=== PATIENT | male | born 1955 | race Native Hawaiian/Other Pacific Islander ===

== ENCOUNTER 2017-07-28 05:31 | Inpatient (IN) | payer OTHER ==
[2017-07-28] VITALS (34 sets, daily range): BP systolic 136–1127; BP diastolic 62–147; TEMP 97.6–98.7; Ht 180.3 cm; Wt 109.3 kg
[~2017-07-28] VITALS: Ht 180.3 cm; Wt 109.3 kg
[~2017-07-28 05:31] MED LIST: AMITRIPTYLIN50 MG PO; ASA LO-DOSE81 MG PO; CLOP75TA2 PO; ESCI10TA PO; FURO20TA67 PO; LOFIBRA200 MG PO; LOPRESSOR100 MG PO; LOSA50TA PO; METF500T PO; METO50TA27 PO; MONT10TA PO; NAPROXEN DR500 MG PO; NEXIUM40 M1 PO; NIASPAN1000 ER PO; NORCO 10/325***1 TAB PO; RANI150T78 PO; ZOCOR80 MG PO
[2017-07-28 05:54] LABS: PLATELET COUNT 188 K/uL (142-355)
[2017-07-28 06:04] LABS: POTASSIUM 4.8 mmol/L (3.6-5.2); SODIUM 130 mmol/L (136-145)
[2017-07-28 06:30] LABS: PARTIAL THROMBOPLASTIN TIME 28.4 SECONDS (24.5-33.6)
[2017-07-28] MEDS ORDERED: WARF5TAB6 PO (12:15)
[2017-07-28] MEDS ORDERED: COUMADIN6 MG PO (12:16)
[2017-07-28] MEDS ORDERED: INSU100P SC (12:17)
[2017-07-28] MEDS ORDERED: LANTUS SOLOSTAR SC (12:18)
[2017-07-29] VITALS (21 sets, daily range): BP systolic 115–167; BP diastolic 61–86; TEMP 97.3–97.9
[2017-07-29 05:40] LABS: PLATELET COUNT 145 K/uL (142-355)
[2017-07-29 06:46] LABS: SODIUM 135 mmol/L (136-145)
== END 2017-07-29 12:31 | disposition short-term general hospital (02) | DRG 311 ==
LOC: ED 05:31 → ICU 10:10
PROVIDERS: ADMIT Family Medicine
DX: I20.0 Unstable angina (principal); I25.2 Old myocardial infarction; I10 Essential (primary) hypertension; E11.9 Type 2 diabetes mellitus without complications; R07.89 Other chest pain
CPT/HCPCS: 80053; 82550; 82553; 82962; 84484; 85027; 85610; 85730; 93005; 94760; 96365; 96368; 96372; 96375; 96376; 99285; J1644; J1815; J2060; J2270; J2405; J2550; J3490

== ENCOUNTER 2017-08-25 00:09 | Inpatient (IN) | payer OTHER ==
[~2017-08-25] VITALS: Ht 180.3 cm; Wt 104.4 kg
[~2017-08-25 00:09] MED LIST changes: +COUMADIN6 MG PO; +INSU100P SC; +LANTUS SOLOSTAR SC; +WARF5TAB6 PO
[2017-08-25 00:29] VITALS: BP 136/67; TEMP 98.2
[2017-08-25 01:34] LABS: PLATELET COUNT 216 K/uL (142-355)
[2017-08-25 01:42] LABS: POTASSIUM 4.5 mmol/L (3.6-5.2)
[2017-08-25 07:30] VITALS: BP 147/73; TEMP 98.3
[2017-08-25 08:29] VITALS: BP 145/75; TEMP 98; Ht 180.3 cm; Wt 104.4 kg
[2017-08-25 11:37] LABS: POTASSIUM 4.1 mmol/L (3.6-5.2)
[2017-08-25 12:00] VITALS: BP 137/68; TEMP 98
[2017-08-25 16:30] VITALS: BP 145/79; TEMP 98.2
[2017-08-25 20:00] VITALS: BP 156/81; TEMP 99.2
[2017-08-26] VITALS: BP 168/92; TEMP 98.7
[2017-08-26 04:00] VITALS: BP 147/78; TEMP 99.4
[2017-08-26 04:49] LABS: PLATELET COUNT 168 K/uL (142-355)
[2017-08-26 05:39] LABS: POTASSIUM 4.5 mmol/L (3.6-5.2)
[2017-08-26 08:00] VITALS: BP 164/87; TEMP 98.9
[2017-08-26 12:00] VITALS: BP 167/83; TEMP 98.9
[2017-08-26 20:00] VITALS: BP 141/72; TEMP 98.4
[2017-08-27] VITALS: BP 155/82; TEMP 98.2
[2017-08-27 04:00] VITALS: BP 166/88; TEMP 98.6
[2017-08-27 05:27] LABS: PLATELET COUNT 200 K/uL (142-355)
[2017-08-27 05:34] LABS: POTASSIUM 4.2 mmol/L (3.6-5.2)
[2017-08-27 08:00] VITALS: BP 162/89; TEMP 98.3
== END 2017-08-27 15:15 | disposition home or self-care (01) | DRG 438 ==
LOC: ED 00:09 → MED/SURG 04:36
PROVIDERS: Family Medicine; ADMIT Specialist
DX: K85.80 Other acute pancreatitis without necrosis or infection (principal); I21.9 Acute myocardial infarction, unspecified; D72.828 Other elevated white blood cell count; E86.0 Dehydration; E11.65 Type 2 diabetes mellitus with hyperglycemia; Z79.4 Long term (current) use of insulin; I25.10 Atherosclerotic heart disease of native coronary artery without angina pectoris; I48.91 Unspecified atrial fibrillation; Z79.01 Long term (current) use of anticoagulants; I12.9 Hypertensive chronic kidney disease with stage 1 through stage 4 chronic kidney disease, or unspecified chronic kidney disease; E11.22 Type 2 diabetes mellitus with diabetic chronic kidney disease; N18.3 Chronic kidney disease, stage 3 (moderate)
CPT/HCPCS: 36415; 80053; 80307; 81000; 82150; 82948; 83690; 83735; 84100; 84484; 85027; 85610; 93005; 96365; 96366; 96367; 96372; 96374; 96375; 99284; G0479; J0744; J1885; J1940; J2175; J2270; J2550; J3490

== ENCOUNTER 2017-09-03 10:21 | Emergency (ER) | payer OTHER ==
[~2017-09-03] VITALS: Ht 180.3 cm; Wt 98.0 kg
[2017-09-03 10:25] VITALS: TEMP 98.4
[2017-09-03 11:43] LABS: PLATELET COUNT 351 K/uL (142-355)
[2017-09-03 11:48] LABS: POTASSIUM 4.4 mmol/L (3.6-5.2)
[2017-09-03 13:33] VITALS: BP 135/78
== END 2017-09-03 13:34 | disposition home or self-care (01) ==
LOC: ED 10:21
PROVIDERS: Specialist
DX: K85.80 Other acute pancreatitis without necrosis or infection (principal); I25.10 Atherosclerotic heart disease of native coronary artery without angina pectoris; R11.2 Nausea with vomiting, unspecified
CPT/HCPCS: 80053; 82150; 83690; 83735; 84100; 84484; 85027; 93005; 96360; 96374; 96375; 96376; 99284; J2270; J2550

== ENCOUNTER 2017-09-12 10:52 | Outpatient (CLI) | payer OTHER | END 2017-09-12 14:00 | disposition home or self-care (01) | LOC: INF 10:52 | DX: E86.0 Dehydration (principal) | CPT/HCPCS: 96360; 96361 ==

== ENCOUNTER 2019-03-24 21:40 | Emergency (ER) | payer OTHER ==
[~2019-03-24] VITALS: Ht 182.9 cm; Wt 94.8 kg
[2019-03-24 21:40] VITALS: TEMP 98
[2019-03-24 22:07] LABS: PLATELET COUNT 197 K/uL (142-355)
[2019-03-24 22:18] LABS: POTASSIUM 4.6 mmol/L (3.6-5.2)
[2019-03-24 23:40] VITALS: BP 152/66
== END 2019-03-24 23:40 | disposition short-term general hospital (02) ==
LOC: ED 21:44
PROVIDERS: Emergency Medicine
DX: I21.9 Acute myocardial infarction, unspecified (principal)
CPT/HCPCS: 36415; 80053; 82550; 82553; 84484; 85027; 93005; 96365; 96375; 99285; J1644; J2270

== ENCOUNTER 2019-03-24 23:43 | Outpatient (CLI) | payer OTHER | END 2019-03-25 00:10 | disposition short-term general hospital (02) | LOC: AMB 23:43 | DX: R07.89 Other chest pain (principal) | CPT/HCPCS: A0425; A0427 ==

== ENCOUNTER 2019-07-17 18:01 | Emergency (ER) | payer OTHER ==
[~2019-07-17] VITALS: Ht 182.9 cm; Wt 95.3 kg
[2019-07-17 18:01] VITALS: TEMP 98.1
[2019-07-17 18:24] LABS: PLATELET COUNT 211 K/uL (142-355)
[2019-07-17 18:38] LABS: POTASSIUM 4.7 mmol/L (3.6-5.2)
[2019-07-17 19:06] LABS: PARTIAL THROMBOPLASTIN TIME 35.4 SECONDS (24.5-33.6)
[2019-07-17 20:42] VITALS: BP 173/83
== END 2019-07-17 20:44 | disposition short-term general hospital (02) ==
LOC: ED 18:02
PROVIDERS: Family Medicine
DX: R07.89 Other chest pain (principal); R79.89 Other specified abnormal findings of blood chemistry; I48.92 Unspecified atrial flutter; I44.30 Unspecified atrioventricular block
CPT/HCPCS: 36415; 80053; 82550; 84484; 85027; 85379; 85610; 85730; 93005; 99284; J2270